=== PATIENT | male | born 2000 | race Caucasian/White ===

== ENCOUNTER 2023-07-21 14:40 | Outpatient (CLI) | payer OTHER, SELFPAY ==
--- NOTE | 2023-07-21 14:30 | CT_ITS ---
Patient: AGUS LEWIS Facility:?[facility] Patient ID:?[id number] Site Patient ID:?[id number] Site :?2000 Study:?CT-Chest 75 CC ISOVUE 370-07/21/2023 11:30:40 AM Ordering Physician:?DR. PINEDA Final Report: INDICATION: Newly diagnosed sarcoma. Assess for metastatic disease. TECHNIQUE: Volumetric helical scanning of the thorax was performed with 75 cc of Isovue 370 nonionic contrast material IV. Coronal and sagittal reconstructions were obtained. COMPARISON: None. FINDINGS: A noncalcified 2 mm left lower lobe nodule is noted on image 60 of series 3. An oblong 4 mm ground-glass opacity in the periphery of the right middle lobe on image 57 of series 3 is demonstrated as well as a 5 mm triangular perifissural opacity in the right middle lobe on image 81. A similar triangular opacities demonstrated in the right lower lobe on image 63. These opacities are presumably benign. There is no significant airway abnormality. No pleural effusion is demonstrated. There is no mediastinal or hilar lymphadenopathy. No lytic or blastic bone lesion is demonstrated. The heart size is normal. Images of the upper abdomen are unremarkable. IMPRESSION: No convincing evidence of metastatic disease. Noncalcified 2 mm left lower lobe nodule and three small right lung opacities, as above, which have a benign appearance. A three-month follow up chest CT is suggested. Please note that all CT scans at this facility use dose modulation, iterative reconstruction, and/or weight-based dosing when appropriate to reduce radiation dose to as low as reasonably achievable. Dictated by Eleno Agosto MD @ 07/22/2023 11:50:06 AM Signed by:?Eleno Agosto MD @07/22/2023 11:50:06 AM (Electronic Signature)
--- NOTE | 2023-07-21 15:00 | PE_ITS ---
[address] [address] Phone:?[phone] Fax:?[phone] Referring Physician Information: . 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 TECHNICAL INFORMATION: Spiral acquisition of data was obtained from the mid orbits to the proximal thighs with reconstruction of 3.75 mm thick images at 3.[address] data was used for attenuation correction. PET scanning was performed through the same anatomic range 53 minutes following administration of 13.317 mCi of 18-FDG delivered intravenously. The patient's glucose at the time of the injection was 71 mg/dL. PET, CT and PET/CT fusion images are interpreted using a computer viewing workstation. SUV max liver 2.3; BMI normalization method. INTERPRETATION: Head and Neck: No abnormal FDG uptake. No adenopathy or mass. Chest: No lung parenchymal nodule or infiltrate. No bronchiectasis, emphysema or fibrosis. Pleural or pericardial effusion. Abdomen, Pelvis and Proximal Thighs: No liver lesion. No biliary duct dilatation. The gallbladder, pancreas, adrenal glands and spleen are unremarkable. Residual excreted contrast within the intrarenal collecting systems, ureters and bladder. No renal lesion. Normal caliber abdominal aorta. No pathologic mesenteric or retroperitoneal adenopathy. 60 x 58 x 53 mm soft tissue mass left groin region, SUV max 2.19. No skeletal lesion. CONCLUSION: 1. Solitary 60 x 58 x 53 mm soft tissue left groin mass, SUV max 2.19, at site of biopsy-proven malignancy. No evidence of pathologic adenopathy or metastatic disease. Electronically signed on 07/22/2023 12:36:00 PM by Gavino Walker M.D.
== END 2023-07-21 14:41 | disposition home or self-care (01) ==
PROVIDERS: PCP Student in an Organized Health Care Education/Training Program; Visit Provider Student in an Organized Health Care Education/Training Program
DX: C49.9 Malignant neoplasm of connective and soft tissue, unspecified (principal)
CPT/HCPCS: 71260; 78815; A9552; Q9967